=== PATIENT | male | born 1995 | race African-American/Black ===

== ENCOUNTER 2022-08-22 08:43 | Emergency (ER) | payer OTHER ==
[~2022-08-22] VITALS: Ht 185.4 cm; Wt 152.9 kg
[2022-08-22] MEDS ORDERED: HYDROCODON-ACE1 EA10 PO (10:31)
--- NOTE | 2022-08-24 13:54 | EKG ---
[facility] [address] [facility] [place] [address] Signed Normal sinus rhythm Normal ECG No previous ECGs available Confirmed by CHEN RAMON MD ([id number]) on 08/24/2022 1:54:27 PM Electronically Signed By: CHEN RAMON MD 08/24/22 1354 PATIENT NAME: TANVI WILSON Electrocardiogram DATE OF : [birth year] PHYSICIAN: CHEN RAMON MD REPORT #: [id number] REPORT IS CONFIDENTIAL AND NOT TO BE RELEASED WITHOUT AUTHORIZATION
== END 2022-08-22 10:40 | disposition home or self-care (01) ==
LOC: ED 08:43
DX: S16.1XXA Strain of muscle, fascia and tendon at neck level, initial encounter (principal); R07.89 Other chest pain; V59.9XXA Occupant (driver) (passenger) of pick-up truck or van injured in unspecified traffic accident, initial encounter
CPT/HCPCS: 36415; 71045; 71275; 72125; 80053; 84484; 85025; 93005; 93010; 99284-25; Q9967